=== PATIENT | male | born 1995 | race Caucasian/White ===

== ENCOUNTER 2017-05-17 14:52 | Emergency (ER) | payer BC, OTHER ==
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
[2017-05-17] MEDS ORDERED: OXYCODONE/APAP 5/325 TAB PO ONE (16:23)
[2017-05-17] MEDS ORDERED: ONDANSETRON DISINTEGRATING 4 MG TAB PO ONE (16:23)
[2017-05-17] MEDS ORDERED: MINERAL OIL 10 ML VIAL TP ONE (17:03)
[2017-05-17 18:51] VITALS: BP 137/76
== END 2017-05-17 18:52 | disposition home or self-care (01) ==
DX: S01.01XA Laceration without foreign body of scalp, initial encounter (principal); F07.81 Postconcussional syndrome; W21.4XXA Striking against diving board, initial encounter; Y92.832 Beach as the place of occurrence of the external cause; Y99.8 Other external cause status; Y93.39 Activity, other involving climbing, rappelling and jumping off

== ENCOUNTER 2017-10-30 19:13 | Emergency (ER) | payer OTHER ==
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
[2017-10-30 20:54] LABS: PLATELET COUNT 235 10^3/uL (150-400)
[2017-10-30 22:10] VITALS: BP 125/80
--- NOTE | 2017-10-30 23:34 | CPEKG ---
Test Reason : OPEN Blood Pressure : / mmHG Vent. Rate : 052 BPM Atrial Rate : 000 BPM P-R Int : 167 ms QRS Dur : 088 ms QT Int : 456 ms P-R-T Axes : 029 052 039 degrees QTc Int : 424 ms Sinus arrhythmia Confirmed by Victorino Ro ([id number]) on 10/30/2017 11:34:03 PM Referred By: Confirmed By:Victorino Ro
== END 2017-10-30 22:10 | disposition home or self-care (01) ==
DX: R07.89 Other chest pain (principal); V18.0XXA Pedal cycle driver injured in noncollision transport accident in nontraffic accident, initial encounter; Y92.9 Unspecified place or not applicable
CPT/HCPCS: 84484-PO